=== PATIENT | female | born 1975 | race Caucasian/White ===

== ENCOUNTER 2023-05-02 09:13 | Outpatient (OUT) | payer SELFPAY ==
[2023-05-02 09:42] LABS: Red Blood Count 4.44 10^6/uL (4.20-5.40)
[2023-05-03 04:07] LABS: Homocyst(e)ine 6.7 umol/L (0.0-14.5)
== END 2023-05-02 09:14 | disposition home or self-care (01) ==
LOC: LAB 09:16
PROVIDERS: PCP Internal Medicine
DX: I49.3 Ventricular premature depolarization (principal); E61.2 Magnesium deficiency; E72.10 Disorders of sulfur-bearing amino-acid metabolism, unspecified
CPT/HCPCS: 83090; 83735